=== PATIENT | female | born 1985 | race Two or more races ===

== ENCOUNTER 2023-01-26 23:19 | Emergency (ER) | payer OTHER ==
[~2023-01-26] VITALS: Ht 167.6 cm; Wt 72.6 kg
[2023-01-26 23:19] VITALS: BP 123/93; PULSE 96; RESP 17; TEMP 98; O2SAT 99
--- NOTE | 2023-01-26 23:19 | NUR ---
PT BIB [facility], PREBOOK. TAKEN TO CHAIR
[2023-01-26 23:25] VITALS: BP 123/93; PULSE 96; RESP 17; TEMP 98; O2SAT 99
--- NOTE | 2023-01-26 23:31 | NUR ---
Dr. Zamudio examining patient.
--- NOTE | 2023-01-27 02:35 | NUR ---
Patient discharged with v/s stable. Written and verbal after care instructions given and explained. Patient verbalized understanding. Police with in custody. All questions addressed prior to discharge. Advised to follow up with PMD. DR. HAAS'S ORDERS REINFORCED
== END 2023-01-27 02:35 ==
LOC: MED 23:19
DX: V49.88XA Car occupant (driver) (passenger) injured in other specified transport accidents, initial encounter; Y93.89 Activity, other specified; Y92.89 Other specified places as the place of occurrence of the external cause; Y99.8 Other external cause status
CPT/HCPCS: 70450; 99284